=== PATIENT | female | born 1950 | race Hispanic/Latino ===

== ENCOUNTER 2017-05-27 19:42 | Emergency (ER) | payer MEDICARE ==
[2017-05-27 21:24] LABS: Basophils % (Auto) 0.4 % (0.0-1.8); Eosinophils % (Auto) 0.5 % (0.0-4.3); Hematocrit 39.5 % (30.3-42.9); Hemoglobin 13.7 gm/dl (10.1-14.3); Mean Corpuscular HGB Conc 35 % (30-34); Mean Corpuscular Hemoglobin 31 pg (28-32); Mean Corpuscular Volume 88 fl (79-97); Platelet Count 264 K/mm3 (140-440); Red Blood Count 4.49 M/mm3 (3.65-5.03); Red Cell Distribution Width 14.9 % (13.2-15.2)
[2017-05-27 21:41] LABS: Anion Gap 20 mmol/L; BUN/Creatinine Ratio 18; Blood Urea Nitrogen 11 mg/dL (7-17); Calcium 9.9 mg/dL (8.4-10.2); Carbon Dioxide 26 mmol/L (22-30); Chloride 96.1 mmol/L (98-107); Glucose 311 mg/dL (65-100); Potassium 5.4 mmol/L (3.6-5.0); Sodium 137 mmol/L (137-145)
[2017-05-27 23:49] LABS: Urine Drugs of Abuse Note Disclamer
[2017-05-28 00:09] LABS: Bacteria,Urine 4+ /HPF (Negative); Bilirubin,Urine NEG (Negative); Blood,Urine SM (Negative); Ketones,Urine 20 mg/dL (Negative); Leukocyte Esterase,Urine LG (Negative); Mucus,Urine FEW /HPF; Nitrite,Urine NEG (Negative); Urobilinogen,Urine < 2.0 mg/dL (<2.0)
[2017-05-28 00:10] LABS: WBC,Urine > 182.0 /HPF (0.0-6.0)
[2017-05-28] MEDS ORDERED: ATIVAN IM ONE (00:43)
[2017-05-28] MEDS ORDERED: GEODON IM ONE (00:47)
[2017-05-28] MEDS ORDERED: XYLOCAINE 1% MPF 5 mL INFILTRATI ONE (05:16)
[2017-05-28] MEDS ORDERED: ROCEPHIN IM ONE (05:16)
--- NOTE | 2017-05-28 05:17 | Emergency Department Report ---
ED General Adult HPI - General Chief complaint: Psych Stated complaint: AMS Time Seen by Provider: 05/27/17 21:28 Source: EMS, RN notes reviewed Mode of arrival: Stretcher Limitations: Altered Mental Status, Physical Limitation - History of Present Illness Initial comments: Patient is a 66-year-old female past medical history schizophrenia who presents with psychosis. Patient was sent from [facility] for psychosis patient is combative and yelling at people. Further history is unobtainable secondary from patient being psychotic. Severity scale (0 -10): 0 - Related Data Home Medications Medication Instructions Recorded Confirmed Last Taken Trihexyphenidyl [Artane Tab] 0.4 mg PO BID 11/16/15 04/19/16 Unknown Cholecalciferol Vit D3 [Vitamin D3] 400 unit PO QDAY 04/19/16 04/19/[address] [Depakomeka Dr] 750 mg PO BID 04/19/16 04/19/16 Unknown Insulin Detemir [Levemir Flextouch] 100 unit SQ QAC 04/19/16 04/19/16 Unknown Insulin Lispro [Humalog Kwikpen 5 unit SQ QPM 04/19/16 04/19/16 Unknown U-100] Insulin Lispro [Humalog] 10 unit SQ QDAY 04/19/16 04/19/16 Unknown Insulin Regular, Human [HumuLIN R] 100 unit SQ ACHS 04/19/16 04/19/16 Unknown Lisinopril [Zestril] 5 mg PO QDAY 04/19/16 04/19/16 Unknown Metformin HCl [Glucophage] 500 mg PO QDAY 04/19/16 04/19/16 Unknown fluPHENAZine DECANOATE 12.5 mg IJ Q21D 04/19/16 04/19/16 Unknown [fluPHENAZine Decanoate] fluPHENAZine HCL [Prolixin] 5 mg PO QDAY 04/19/16 04/19/16 Unknown Previous Rx's Medication Instructions Recorded Last Taken Type Insulin Glulisine [Apidra] 0 units SUB-Q ACHS units 12/04/15 Unknown Rx OLANzapine ZYDIS [ZyPREXA Zydis] 5 mg PO TID@0600,1400,2200 12/04/15 Unknown Rx tab.rapdis Allergies Allergy/AdvReac Type Severity Reaction Status Date / Time chlorpromazine HCl Allergy Unknown Verified 11/15/15 17:21 [From Thorazine] Iodinated Contrast- Oral and Allergy Unknown Verified 11/15/15 17:21 IV Dye ED Review of Systems ROS: Stated complaint: AMS Other details as noted in HPI Comment: Unobtainable due to pts medical conditions ED Past Medical Hx - Past Medical History Previous Medical History?: Yes Hx Hypertension: Yes Hx Diabetes: Yes Hx Psychiatric Treatment: Yes (schizophrenia) Additional medical history: cataracts, uti, encephalopathy, pneumonia, lives in [place] - Surgical History Past Surgical History?: No Additional Surgical History: unknown surgical history. - Social History Smoking Status: Never Smoker Substance Use Type: Prescribed - Medications Home Medications: Home Medications Medication Instructions Recorded Confirmed Last Taken Type Trihexyphenidyl [Artane Tab] 0.4 mg PO BID 11/16/15 04/19/16 Unknown History Insulin Glulisine [Apidra] 0 units SUB-Q ACHS units 12/04/15 04/19/16 Unknown Rx OLANzapine ZYDIS [ZyPREXA Zydis] 5 mg PO TID@0600,1400,2200 12/04/15 04/19/16 Unknown Rx tab.rapdis Cholecalciferol Vit D3 [Vitamin D3] 400 unit PO QDAY 04/19/16 04/19/16 Unknown History Divalproex [Juanito Shaffer] 750 mg PO BID 04/19/16 04/19/16 Unknown History Insulin Detemir [Levemir Flextouch] 100 unit SQ QAC 04/19/16 04/19/16 Unknown History Insulin Lispro [Humalog Kwikpen 5 unit SQ QPM 04/19/16 04/19/16 Unknown History U-100] Insulin Lispro [Humalog] 10 unit SQ QDAY 04/19/16 04/19/16 Unknown History Insulin Regular, Human [HumuLIN R] 100 unit SQ ACHS 04/19/16 04/19/16 Unknown History Lisinopril [Zestril] 5 mg PO QDAY 04/19/16 04/19/16 Unknown History Metformin HCl [Glucophage] 500 mg PO QDAY 04/19/16 04/19/16 Unknown History fluPHENAZine DECANOATE 12.5 mg IJ Q21D 04/19/16 04/19/16 Unknown History [fluPHENAZine Decanoate] fluPHENAZine HCL [Prolixin] 5 mg PO QDAY 04/19/16 04/19/16 Unknown History ED Physical Exam - General Limitations: Altered Mental Status, Physical Limitation General appearance: anxious - Head Head exam: Present: atraumatic, normocephalic - Eye Eye exam: Present: normal appearance - ENT ENT exam: Present: mucous membranes moist - Neck Neck exam: Present: normal inspection - Respiratory Respiratory exam: Present: normal lung sounds bilaterally. Absent: respiratory distress - Cardiovascular Cardiovascular Exam: Present: regular rate, normal rhythm. Absent: systolic murmur, diastolic murmur, rubs, gallop - GI/Abdominal GI/Abdominal exam: Present: soft, normal bowel sounds - Extremities Exam Extremities exam: Present: normal inspection - Back Exam Back exam: Present: normal inspection - Psychiatric Psychiatric exam: Present: agitated, other (psychotic) - Skin Skin exam: Present: warm, dry, intact, normal color. Absent: rash ED Course Vital Signs 05/27/17 05/27/17 05/27/17 20:38 23:33 23:34 Temperature 98.1 F 98 F Pulse Rate 85 74 Respiratory 18 20 18 Rate Blood Pressure 129/79 Blood Pressure 123/79 [Left] O2 Sat by Pulse 98 98 Oximetry ED Medical Decision Making - Lab Data Result diagrams: 05/27/17 21:05 05/27/17 21:05 Lab Results 05/27/17 05/27/17 05/27/17 Range/Units 21:05 21:05 21:05 WBC 10.0 (4.5-11.0) K/mm3 RBC 4.49 (3.65-5.03) M/mm3 Hgb 13.7 (10.1-14.3) gm/dl Hct 39.5 (30.3-42.9) % MCV 88 (79-97) fl MCH 31 (28-32) pg MCHC 35 H (30-34) % RDW 14.9 (13.2-15.2) % Plt Count 264 (140-440) K/mm3 Lymph % (Auto) 37.6 H (13.4-35.0) % [place] % (Auto) 16.0 H (0.0-7.3) % Eos % (Auto) 0.5 (0.0-4.3) % Baso % (Auto) 0.4 (0.0-1.8) % Lymph # 3.8 (1.2-5.4) K/mm3 [place] # 1.6 H (0.0-0.8) K/mm3 Eos # 0.0 (0.0-0.4) K/mm3 Baso # 0.0 (0.0-0.1) K/mm3 Seg Neutrophils % 45.5 (40.0-70.0) % Seg Neutrophils # 4.6 (1.8-7.7) K/mm3 Sodium 137 (137-145) mmol/L Potassium 5.4 H (3.6-5.0) mmol/L Chloride 96.1 L (98-107) mmol/L Carbon Dioxide 26 (22-30) mmol/L Anion Gap 20 mmol/L BUN 11 (7-17) mg/dL Creatinine 0.6 L (0.7-1.2) mg/dL Estimated GFR > 60 ml/min BUN/Creatinine Ratio 18 % Glucose 311 H (65-100) mg/dL Calcium 9.9 (8.4-10.2) mg/dL Urine Color (Yellow) Urine Turbidity (Clear) Urine pH (5.0-7.0) Ur Specific [place] (1.003-1.030) Urine Protein (Negative) mg/dL Urine Glucose (UA) (Negative) mg/dL Urine Ketones (Negative) mg/dL Urine Blood (Negative) Urine Nitrite (Negative) Urine Bilirubin (Negative) Urine Urobilinogen (<2.0) mg/dL Ur Leukocyte Esterase (Negative) Urine WBC (Auto) (0.0-6.0) /HPF Urine RBC (Auto) (0.0-6.0) /HPF U Epithel Cells (Auto) (0-13.0) /HPF Urine Bacteria (Auto) (Negative) /HPF Urine Mucus /HPF Urine Opiates Screen Urine Methadone Screen Ur Barbiturates Screen Ur Phencyclidine Scrn Ur Amphetamines Screen U Benzodiazepines Scrn Urine Cocaine Screen U Marijuana (THC) Screen Drugs of Abuse Note Plasma/Serum Alcohol < 0.01 (0-0.07) gm% 05/27/17 05/27/17 Range/Units 23:34 23:34 WBC (4.5-11.0) K/mm3 RBC (3.65-5.03) M/mm3 Hgb (10.1-14.3) gm/dl Hct (30.3-42.9) % MCV (79-97) fl MCH (28-32) pg MCHC (30-34) % RDW (13.2-15.2) % Plt Count (140-440) K/mm3 Lymph % (Auto) (13.4-35.0) % [place] % (Auto) (0.0-7.3) % Eos % (Auto) (0.0-4.3) % Baso % (Auto) (0.0-1.8) % Lymph # (1.2-5.4) K/mm3 [place] # (0.0-0.8) K/mm3 Eos # (0.0-0.4) K/mm3 Baso # (0.0-0.1) K/mm3 Seg Neutrophils % (40.0-70.0) % Seg Neutrophils # (1.8-7.7) K/mm3 Sodium (137-145) mmol/L Potassium (3.6-5.0) mmol/L Chloride (98-107) mmol/L Carbon Dioxide (22-30) mmol/L Anion Gap mmol/L BUN (7-17) mg/dL Creatinine (0.7-1.2) mg/dL Estimated GFR ml/min BUN/Creatinine Ratio % Glucose (65-100) mg/dL Calcium (8.4-10.2) mg/dL Urine Color Yellow (Yellow) Urine Turbidity Clear (Clear) Urine pH 6.0 (5.0-7.0) Ur Specific [place] 1.011 (1.003-1.030) Urine Protein 30 mg/dl (Negative) mg/dL Urine Glucose (UA) >=500 (Negative) mg/dL Urine Ketones 20 (Negative) mg/dL Urine Blood Sm (Negative) Urine Nitrite Neg (Negative) Urine Bilirubin Neg (Negative) Urine Urobilinogen < 2.0 (<2.0) mg/dL Ur Leukocyte Esterase Lg (Negative) Urine WBC (Auto) > 182.0 H (0.0-6.0) /HPF Urine RBC (Auto) 42.0 (0.0-6.0) /HPF U Epithel Cells (Auto) < 1.0 (0-13.0) /HPF Urine Bacteria (Auto) 4+ (Negative) /HPF Urine Mucus Few /HPF Urine Opiates Screen Presumptive negative Urine Methadone Screen Presumptive negative Ur Barbiturates Screen Presumptive negative Ur Phencyclidine Scrn Presumptive negative Ur Amphetamines Screen Presumptive negative U Benzodiazepines Scrn Presumptive negative Urine Cocaine Screen Presumptive negative U Marijuana (THC) Screen Presumptive negative Drugs of Abuse Note Disclamer Plasma/Serum Alcohol (0-0.07) gm% - Medical Decision Making Chief medical diagnosis: Psychosis Differential diagnosis: UTI, metabolic abnormality, bipolar, medication effect I will get a urinalysis, CBC, CMP, mental health evaluation, IM antipsychotic and IM antibiotic Due to patient having psychotic behavior I will signed 1013 on patient and I will treat patient for her UTI. I'll have patient evaluated by mental health worker in the morning. Critical care attestation.: If time is entered above; I have spent that time in minutes in the direct care of this critically ill patient, excluding procedure time. ED Disposition Clinical Impression: UTI (urinary tract infection) Qualifiers: Urinary tract infection type: acute cystitis Hematuria presence: without hematuria Qualified Code(s): N30.00 - Acute cystitis without hematuria Psychosis Qualifiers: Psychosis type: unspecified psychosis type Qualified Code(s): F29 - Unspecified psychosis not due to a substance or known physiological condition Disposition: DC/TX-65 PSY HOSP/PSY UNIT Is pt being admited?: No Does the pt Need Aspirin: No Condition: Stable Referrals: PRIMARY CARE, [Primary Care Provider] - 3-5 Days
[2017-05-28] MEDS ORDERED: ALUM-MAG HYDROX-SIMETH 200-200-20MG/5ML PO PRN (05:20)
[2017-05-28] MEDS ORDERED: MILK OF MAGNESIA PO PRN (05:20)
[2017-05-28] MEDS ORDERED: TYLENOL PO PRN (05:20)
--- NOTE | 2017-05-28 16:27 | Progress Note ---
Subjective - Reason for Consult Consult date: 05/28/17 Reason for consult: attempt to consult. - Chief Complaint Chief complaint: Patient no responsive to external stimuli. Unable to obtain information. Mental Status Exam - Vital signs Last Vital Signs Temp 97.3 F L 05/28/17 08:12 Pulse 109 H 05/28/17 08:12 Resp 16 05/28/17 08:12 BP 143/65 05/28/17 08:12 Pulse Ox 97 05/28/17 08:12
[2017-05-28 20:05] VITALS: BP 151/80
[2017-05-28] MEDS ORDERED: D50W (25GM) Syringe IV PRN (22:49)
[2017-05-29] MEDS ORDERED: NACL 0.9% 1000 ML 2,000 ML IV ONE (00:31)
[2017-05-29 01:02] LABS: Alanine Aminotransferase 46 units/L (7-56); Albumin 4.2 g/dL (3.9-5); Albumin/Globulin Ratio 0.8 %; Alkaline Phosphatase 129 units/L (35-129); Anion Gap 20 mmol/L; BUN/Creatinine Ratio 24; Blood Urea Nitrogen 19 mg/dL (7-17); Calcium 9.6 mg/dL (8.4-10.2); Carbon Dioxide 26 mmol/L (22-30); Chloride 94.2 mmol/L (98-107); Glucose 495 mg/dL (65-100); Sodium 136 mmol/L (137-145); Total Protein 9.2 g/dL (6.3-8.2)
[2017-05-29 01:09] LABS: Potassium 4.2 mmol/L (3.6-5.0)
--- NOTE | 2017-05-29 15:47 | Progress Note ---
Subjective - Reason for Consult Consult date: 05/29/17 Reason for consult: Psychiatry Follow-up - Chief Complaint Chief complaint: "What do you want" Patient is a 66-year-old female past medical history schizophrenia who presents with psychosis. Patient was sent from [facility] for psychosis. Today patient is irritable, agitated, and disorganized during the assessment. When questions was asked of her, she would ramble from topic to topic and had to be redirected several times. She was attempting to use her plastic spoon to eat her breakfast, so I asked if she needed assistance she yelled, "No." She would not confirm or deny SI/HI's. Mental Status Exam - Vital signs Last Vital Signs Temp 98.1 F 05/28/17 20:04 Pulse 88 05/28/17 20:04 Resp 20 05/28/17 23:18 BP 151/80 05/28/17 20:04 Pulse Ox 97 05/28/17 23:18 - Exam Narrative exam: MSE: Appearance: irritable Behavior: poor eye contact Speech: rambles Mood: agitated Affect: congruent to mood Thought Process: unable to assess Thought Content: would not confirm or deny SI/HI's and AVH's, disorganized Motor Activity: lying in bed Cognition: A/O x1 Insight: poor Judgment: poor Assessment and Plan Impression: Per chart - Schizophrenia. Patient is irritable, uncooperative, but disorganized during the assessment. Recommendation/Plan: Continue 1013 with placement to [facility] today.
== END 2017-05-29 13:44 ==
LOC: ED 19:42
DX: F20.9 Schizophrenia, unspecified (principal); I10 Essential (primary) hypertension; E11.9 Type 2 diabetes mellitus without complications; Z88.8 Allergy status to other drugs, medicaments and biological substances; Z91.041 Radiographic dye allergy status; Z79.4 Long term (current) use of insulin
CPT/HCPCS: 36415; 80048; 80053; 80307; 81001; 82962; 85025; 96360; 96372; 99285; G0480; J0696; J2060; J3486; J7030; 80320; J1815